=== PATIENT | female | born 1930 | race Caucasian/White ===

== ENCOUNTER 2017-03-31 07:58 | Inpatient (IN) | payer OTHER ==
[~2017-03-31] VITALS: Ht 160 cm; Wt 72.6 kg
--- NOTE | ~2017-03-31 | O ---
[facility] [place] [address] OPERATIVE REPORT Name: JENNIE CAM Room #: 404-P [facility] IN M.R.#: [id number] Admission: 03/31/17 Attend Phys: Ramirez Ivan Discharge: 04/04/17 Date of : 31 Report #: [id number] THIS REPORT FOR: //name// CC: Ramirez Garcia DATE OF SERVICE: 04/01/2017 PREOPERATIVE DIAGNOSIS: Left comminuted transverse patellar fracture. POSTOPERATIVE DIAGNOSIS: Left comminuted transverse patellar fracture. PROCEDURE: Left inferior patellar pole patellectomy with primary patellar tendon repair. SURGEON: Robert Coker MD CABLE ENGINEER OUTSIDE PLANT: Mirna Marquez PA-C INDICATION FOR CABLE ENGINEER OUTSIDE PLANT: Throughout the case, extensive retraction and manipulation of the knee was required. This was afforded to me by my sales and marketing assistant. ANESTHESIA: LMA. TOURNIQUET TIME: 35 minutes. COMPLICATIONS: None. SPECIMENS: None. CONDITION UPON LEAVING THE OR: Stable. INDICATIONS FOR PROCEDURE: The patient is an 86-year-old female who fell and sustained a left transverse comminuted patellar fracture. This was significantly displaced. She sustained a very similar fracture on her right knee about 2 years ago that was treated with inferior pole patellectomy and primary repair and she did very well with this. After discussion with she and her family, they elected for ORIF versus inferior patellectomy with primary repair. DESCRIPTION OF PROCEDURE: Risks, benefits, alternatives, complications were discussed in detail with the patient including but not limited to risk of anesthesia, risk of damage to nerves, arteries, blood vessels, risk for infection, bleeding, risk for continued knee pain, need for reoperation, re-rupture and further complications. Informed consent was obtained from the patient. Left knee was appropriately marked in the preoperative holding area. [address] [address] OPERATIVE REPORT Name: DORINAJENNIEGeovanni DIAZ Room #: 404-P [facility] IN M.R.#: [id number] Admission: 03/31/17 Attend Phys: Ramirez Ivan Discharge: 04/04/17 Date of : 31 Report #: [id number] Ancef was given for preoperative antibiotics. She was brought to the operating room and placed in supine position on operating room table. LMA anesthesia was induced without complication. Tourniquet was placed on left thigh. Left lower extremity was prepped and draped in normal sterile fashion. Timeout was performed properly identifying the patient and procedure as well as instrumentation. All in the operating room were in agreement. Left lower extremity was exsanguinated, tourniquet was inflated. Tourniquet time was approximately 35 minutes. Standard midline approach to the knee was made with 10 blade through the skin and dissection was taken down to the quadriceps fascia and upon entering the deep space, a large hematoma was evacuated. Deep flaps were developed medially and laterally. The superior fracture fragment was one large solid piece. The inferior fracture fragment was highly comminuted and crushed and it was felt that this was not repairable. The inferior patellar pole was then removed sharply with a 15 blade. Two #5 FiberWires were then passed through the patellar tendon using a Mcdonald type suture technique. was then used to drill 3 holes in the patella from inferior to superior and the sutures were delivered through the drill holes. The knee was then held in extension and the patellar tendon was held reduced to the patella and the #5 FiberWires were tied. There was excellent repair of the tendon to the bone with minimal tension of 45 degrees in flexion. The torn retinaculum was then repaired with 0 Vicryl. The tendon was oversewn to the patella using 0 Vicryl, skin was closed with 2-0 Vicryl, 3-0 Monocryl and Dermabond and soft dressing was applied with a hinged knee brace locked in extension. The patient tolerated the procedure well and went to the recovery room under the care of anesthesia postoperatively. <ELECTRONICALLY SIGNED> By: Robert Coker MD 04/23/17 0820 1536 1718 Robert Coker MD /nt
--- NOTE | ~2017-03-31 | HC ---
[facility] [place] [address] CONSULTATION Name: JENNIE CAM Room #: 404-P ADM IN M.R.#: [id number] Admission: 03/31/17 Attend Phys: Ramirez Ivan Discharge: Date of : 31 Report #: [id number] THIS REPORT FOR: //name// CC: Ramirez Garcia CHIEF COMPLAINT: Left patella fracture. HISTORY OF PRESENT ILLNESS: This still active, alert and independent 86-year-old female fell injuring the left knee. This resulted in a transverse comminuted displaced patellar fracture. She sustained no other injuries. She had a similar injury in the opposite right knee, which required surgical repair about 3 years ago. She has done well on that side. She notes her only other general medical issues are mild hypertension and mild paroxysmal tachycardia, which seems to be well controlled. She notes she is active and fully functional at home with her and cares for her own home and is able to walk for exercise. PHYSICAL EXAMINATION: At the time of my evaluation, she is in the Emergency Room with her and daughter. She is fully alert and comfortable and seems younger than her stated age. She notes no other areas of injury and has no other complaints aside from the left knee. She seems to have good movement of the neck, back and both upper extremities without any localized discomfort. The pelvis appears stable and she demonstrates satisfactory movement of both hips without hip pain. The right lower extremity reveals good movement at the right knee and her old surgical scar consistent with previous patella injury with repair. The left knee is puffy and uncomfortable and there is a palpable defect consistent with a displaced and unstable patella fracture. The left lower leg, foot and ankle appear to be normal. X-rays of the left knee reveal a transverse comminuted fracture of the patella with a smaller comminuted distal fragment and a larger more intact proximal fragment. There is a wide separation. The rest of the bony architecture about the distal femur and proximal tibia appear to be normal. IMPRESSION: Fracture, left patella. PLAN: I have discussed with the patient and her family the nature of the injury. They understand well as she has had a similar problem in the opposite side. I think surgical repair is the best option. We will admit her today and make sure there are no other medical problems which require attention. At this point, however, she seems healthy and I would anticipate we could probably proceed with surgical repair whenever OR time is available. The opposite side was repaired by Dr. Coker and they may wish to have [place] [address] CONSULTATION Name: JENNIE CAM Room #: 404-P [facility] IN M.R.#: [id number] Admission: 03/31/17 Attend Phys: Ramirez Ivan Discharge: Date of : 31 Report #: [id number] as well. Pending this and other scheduling issues, we will try to proceed tomorrow with surgical repair of the left patella fracture. <ELECTRONICALLY SIGNED> By: Jean-Claude Cam MD 04/02/17 0718 1116 [id number] Jean-Claude Cam MD /nt
--- NOTE | ~2017-03-31 | EKG ---
[place] [address] [facility] [place] [address] ELECTROCARDIOGRAM REPORT Name: JENNIE CAM Room #: 170-4 ADM IN M.R.#: [id number] Admission: 03/31/17 Attend Phys: Ramirez Ivan Discharge: Date of : 31 Report #: [id number] THIS REPORT FOR: //name// [facility] ED Test Date: 2017-03-31 Test Time: 09:54:50 Pat Name: JENNIE CAM Department: Room: 170 Gender: F Pumper Gauger Apprentice: Constantine MAYFIELD : 1930 Requested By: Lian Cabrales Order Number: [id number] MD: Bhavin Brice Measurements Intervals [place] Rate: 64 P: 52 WI: 204 QRS: 21 QRSD: 86 T: 49 QT: 419 QTc: 433 Interpretive Statements Sinus rhythm Minimal ST depression, lateral leads Compared to ECG 01/17/2015 16:10:49 ST (T wave) deviation now present Electronically Signed On 03-31-2017 12:16:31 SPOILAGE WORKER by Bhavin Brice [email or web address] <ELECTRONICALLY SIGNED> By: Bhavin Brice MD 03/31/17 1216 0954 0954 Bhavin Brice MD /ISHMAEL
[~2017-03-31 07:58] MED LIST: COLACE100 MG PO; ENOXAPARIN40 MG/0.1 SUBQ; FERROUS SULFAT325 M1 PO; LISINOPRIL10 MG PO; NORCO 5-325 TA1 EACH PO; NORVASC5 MG PO; PAXIL10 MG; PRINIVIL20 M1 PO; PROTONIX40 M1 PO; SENNA PO; TENORMIN25 MG PO; TENORMIN50 MG PO; TYLENOL325 MG PO; VITAMINC500 PO
[2017-03-31 07:59] VITALS: BP 79/67
[2017-03-31 10:14] LABS: ABSOLUTE NEUTROPHILS 8.8 thou/uL (1.4-8.2); BASOPHILS 0.4 % (0.0-2.0); EOSINOPHILS 0.6 % (0.0-3.0); HEMATOCRIT 32.6 % (37.0-47.0); HEMOGLOBIN 11.1 gm/dL (12.0-15.0); LYMPHOCYTES 7.1 % (24.0-44.0); MCH 29.1 pg (26.0-34.0); MCHC 33.9 g/dL (28.0-37.0); MCV 85.8 fL (80.0-100.0); MONOCYTES 4.5 % (1.0-8.0); PLATELET COUNT 310 thou/uL (150-400); POLYS 87.4 % (36.0-66.0); RDW 14.1 % (10.5-14.5); WBC 10.1 thou/uL (4.0-11.0)
[2017-03-31 10:23] LABS: CALCIUM 9.1 mg/dL (8.5-10.1); CREATININE 1.2 mg/dL (0.6-1.0); POTASSIUM 4.3 mmol/L (3.5-5.1)
[2017-03-31 10:38] LABS: APTT 27.8 Seconds (24.5-32.8); PROTIME 10.2 Seconds (9.3-11.4)
[2017-03-31 17:21] VITALS: BP 159/73
[2017-03-31 17:53] VITALS: BP 152/78
[2017-03-31 20:00] VITALS: BP 168/65
[2017-04-01] MEDS ORDERED: PRAVACHOL20 MG PO (02:54)
[2017-04-01] MEDS ORDERED: ASPIR 8181 MG PO (02:55)
[2017-04-01] MEDS ORDERED: VITAMIN D1000 UNI1 PO (02:56)
[2017-04-01 04:00] VITALS: BP 142/49
[2017-04-01 04:39] LABS: ALBUMIN 2.8 g/dL (3.4-5.0); CALCIUM 8.4 mg/dL (8.5-10.1); CREATININE 1.2 mg/dL (0.6-1.0); PHOSPHORUS 3.4 mg/dL (2.5-4.9); POTASSIUM 4.1 mmol/L (3.5-5.1)
[2017-04-01 08:00] VITALS: BP 162/63
[2017-04-01 14:41] VITALS: BP 172/75
[2017-04-01 16:00] VITALS: BP 162/63
[2017-04-01 20:14] VITALS: BP 142/57
[2017-04-02 01:14] VITALS: BP 134/53
[2017-04-02 04:05] VITALS: BP 146/65
[2017-04-02 06:41] LABS: HEMATOCRIT 26.9 % (37.0-47.0); HEMOGLOBIN 9.3 gm/dL (12.0-15.0); MCH 29.7 pg (26.0-34.0); MCHC 34.6 g/dL (28.0-37.0); MCV 85.9 fL (80.0-100.0); RBC 3.14 mil/uL (4.20-5.00); RDW 13.9 % (10.5-14.5); WBC 9.8 thou/uL (4.0-11.0)
[2017-04-02 06:53] LABS: CALCIUM 8.4 mg/dL (8.5-10.1); CREATININE 1.2 mg/dL (0.6-1.0); POTASSIUM 4.4 mmol/L (3.5-5.1)
[2017-04-02 07:45] VITALS: BP 141/60
[2017-04-02 16:02] VITALS: BP 147/57
[2017-04-02 20:00] VITALS: BP 154/60
[2017-04-03 04:00] VITALS: BP 138/48
[2017-04-03 07:39] VITALS: BP 159/64
[2017-04-03] MEDS ORDERED: CYCLOBENZAPRINE5 MG PO (12:02)
[2017-04-03] MEDS ORDERED: NORCO 5-325 TA1 EACH PO (12:03)
[2017-04-03 15:28] VITALS: BP 146/58
[2017-04-03 20:00] VITALS: BP 151/49
[2017-04-04 04:00] VITALS: BP 114/62
[2017-04-04 09:21] VITALS: BP 152/70
== END 2017-04-04 10:20 | DRG 488 ==
LOC: ER 07:58 → EROBS 09:10 → 4N 09:10
PROVIDERS: Emergency Medicine; Hospitalist
DX: S82.042A Displaced comminuted fracture of left patella, initial encounter for closed fracture (principal); E43 Unspecified severe protein-calorie malnutrition; I10 Essential (primary) hypertension; M81.0 Age-related osteoporosis without current pathological fracture; Z90.49 Acquired absence of other specified parts of digestive tract; Z79.899 Other long term (current) drug therapy; S70.02XA Contusion of left hip, initial encounter; W01.0XXA Fall on same level from slipping, tripping and stumbling without subsequent striking against object, initial encounter; Y93.89 Activity, other specified; Y92.89 Other specified places as the place of occurrence of the external cause; Y99.8 Other external cause status
CPT/HCPCS: 10790; 50010; 50101; 50386; 51331; 51412; 53337; 54118; 56521; 56527; 56528; 56531; 57091; 62110; 62900; 64037; 64041; 64043; 70005

== ENCOUNTER → 2019-07-29 | Outpatient (CLI) | payer OTHER ==
[~2019-07-29] MED LIST changes: +ASPIR 8181 MG PO; +CYCLOBENZAPRINE5 MG PO; +PRAVACHOL20 MG PO; +VITAMIN D1000 UNI1 PO
== END ==
LOC: SJCVC 13:20
DX: I25.111 Atherosclerotic heart disease of native coronary artery with angina pectoris with documented spasm (principal); I10 Essential (primary) hypertension; E78.00 Pure hypercholesterolemia, unspecified; I65.23 Occlusion and stenosis of bilateral carotid arteries; R93.1 Abnormal findings on diagnostic imaging of heart and coronary circulation; R00.2 Palpitations; R42 Dizziness and giddiness; Z82.49 Family history of ischemic heart disease and other diseases of the circulatory system; Z79.82 Long term (current) use of aspirin; Z79.899 Other long term (current) drug therapy

== ENCOUNTER 2020-12-30 09:18 | Emergency (ER) | payer OTHER ==
[~2020-12-30] VITALS: Ht 160 cm; Wt 70.3 kg
[2020-12-30] MEDS ORDERED: ATORVASTATIN CA10 MG PO (09:24)
[2020-12-30] MEDS ORDERED: NORTRIPTYLINE H10 M1 PO (09:24)
[2020-12-30] MEDS ORDERED: ATENOLOL 25 MG25 M1 PO (09:25)
[2020-12-30] MEDS ORDERED: COZAAR 25 MG TA25 M1 PO (09:26)
[2020-12-30 09:42] LABS: ABSOLUTE NEUTROPHILS 6.2 thou/uL (1.4-8.2); BASOPHILS 0.5 % (0.0-2.0); EOSINOPHILS 1.6 % (0.0-3.0); HEMATOCRIT 32.9 % (37.0-47.0); HEMOGLOBIN 10.8 gm/dL (12.0-15.0); LYMPHOCYTES 14.7 % (24.0-44.0); MCH 28.2 pg (26.0-34.0); MCHC 32.7 g/dL (28.0-37.0); MCV 86.4 fL (80.0-100.0); MONOCYTES 6.3 % (1.0-8.0); PLATELET COUNT 326 thou/uL (150-400); POLYS 76.9 % (36.0-66.0); RBC 3.81 mil/uL (4.20-5.00); WBC 8.1 thou/uL (4.0-11.0)
[2020-12-30 09:51] LABS: CALCIUM 8.9 mg/dL (8.5-10.1); CREATININE 1.5 mg/dL (0.6-1.0); POTASSIUM 4.2 mmol/L (3.5-5.1)
--- NOTE | 2020-12-30 09:56 | EKG ---
[address] [address] ELECTROCARDIOGRAM REPORT Name: JENNIE CAM Room #: [facility].R.#: [id number] Admission: Attend Phys: Discharge: Date of : 31 Report #: [id number] ED Test Date: 2020-12-30 Test Time: 09:23:27 Pat Name: JENNIE CAM Department: Room: Gender: F Research Interviewer: : 1930 Requested By: Jean-Claude Sin Order Number: [id number] MD: Billy Bourgeois Measurements Intervals [place] Rate: 69 P: 42 GA: 189 QRS: 8 QRSD: 99 T: 32 QT: 415 QTc: 445 Interpretive Statements Sinus rhythm Probable left ventricular hypertrophy Compared to ECG 03/31/2017 09:54:50 Left ventricular hypertrophy now present Electronically Signed On 12-30-2020 9:56:05 CDT by Billy Bourgeois [email or web address] <ELECTRONICALLY SIGNED> By: Billy Bourgeois MD, [facility] 12/30/2056 2 2 Billy Bourgeois MD, FACC /EPI
[2020-12-30 10:00] LABS: ALBUMIN 2.9 g/dL (3.4-5.0); TOTAL BILIRUBIN 0.3 mg/dL (0.2-1.0); TOTAL PROTEIN 7.2 g/dL (6.4-8.2)
[2020-12-30 10:27] LABS: URINE BILIRUBIN NEGATIVE (Negative); URINE BLOOD NEGATIVE (Negative); URINE CLARITY CLEAR; URINE COLOR YELLOW; URINE GLUCOSE-RANDOM* NEGATIVE (Negative); URINE KETONES NEGATIVE (Negative); URINE LEUKOCYTES-REFLEX NEGATIVE (Negative); URINE NITRITE-REFLEX NEGATIVE (Negative); URINE PROTEIN (DIPSTICK) 2+ (Negative); URINE SPECIFIC GRAVITY 1.015 (1.005-1.035); URINE UROBILINOGEN 0.2 E.U./dl (0.2-1.0)
[2020-12-30 11:36] LABS: BACTERIA-REFLEX 1-9 Few /HPF (None Seen); CASTS None Seen /LPF (None Seen); CRYSTALS None Seen /LPF (None Seen); SQUAMOUS 0-3 Few /LPF (0-3); URINE RBC None Seen /HPF (NONE SEEN); URINE WBC-REFLEX 0-5 Rare /HPF (0-5)
[2020-12-30] MEDS ORDERED: MECLIZINE HCL25 MG PO (11:46)
[2020-12-30 11:58] VITALS: BP 186/66
== END 2020-12-30 11:58 | disposition home or self-care (01) ==
LOC: ER 09:18
PROVIDERS: Emergency Medicine
DX: R42 Dizziness and giddiness (principal); I12.9 Hypertensive chronic kidney disease with stage 1 through stage 4 chronic kidney disease, or unspecified chronic kidney disease; N18.9 Chronic kidney disease, unspecified; Z90.49 Acquired absence of other specified parts of digestive tract; Z90.89 Acquired absence of other organs; Z98.890 Other specified postprocedural states; Z79.82 Long term (current) use of aspirin; Z79.891 Long term (current) use of opiate analgesic; Z79.899 Other long term (current) drug therapy

== ENCOUNTER 2021-02-05 15:37 | Emergency (ER) | payer OTHER ==
[~2021-02-05] VITALS: Ht 160 cm; Wt 72.6 kg
--- NOTE | ~2021-02-05 | EMS ---
[address] [address] EMS Patient Care Report Name: JENNIE CAM Room #: DEP PREMA [place]#: [id number] Admission: 02/05/21 Attend Phys: Discharge: 02/05/21 Date of : 31 Report #: [id number] THIS REPORT FOR: //name// Report Transmitted: 02/06/2021 15:14 EMS Care Summary [place], [place]/[facility] Incident [id number] @ 02/05/2021 14:46 Incident Location [address] [place] [address] Patient JENNIE CAM Female, 89 Years 1930 Patient Address [address] [place] [address] Patient History Hypertension (HTN), Patient Allergies No known allergies, Patient Medications Potassium, Atorvastatin, Atenolol, Amlodipine, Losartan, Chief Complaint headache Disposition Transported No Lights/Jones Dispatch Reason Sick Person Transported To [facility] Narrative Dispatched to an assisted living facility in regards to a sick. On arrival, I saw patient sitting in the lounge in her armchair. Initial assessment revealed that patient was A&Ox4 and did not appear to be in respiratory distress. Patient's chief complaint was a headache that started earlier today. [place] [id number] EMS Patient Care Report Name: JENNIE CAM Room #: DEP PREMA FerrariSrinivas#: [id number] Admission: 02/05/21 Attend Phys: Discharge: 02/05/21 Date of : 31 Report #: [id number] stated that patient began having a headache and they checked her blood pressure and saw that her blood pressure was high. Family also state that patient sometimes has a hard time controlling her blood pressure even with her medicine. Physical assessment revealed that patient was pink warm and dry. Patient was able to ambulate to our cot unassisted. Patient was secured and lifted into the ambulance. treatment rendered was obtaining a complete set of baseline vital signs including a blood glucose reading, 3 lead ECG monitoring and establishing vascular access with a saline lock. Patient was transported to [facility] and radio report was given en route. Patient care was transferred on arrival. Initial Vitals @15:19P: 71,R: 16,BP: 224/96,Pain: 4/10,GCS: 15,SpO2: 98,Revised Trauma: 12, @15:09P: 75,R: 16,BP: 224/91,Pain: 4/10,GCS: 15,Glucose: 130,CO: 0,SpO2: 100,Revised Trauma: 12, Assessments @15:23MENTAL:Time Oriented,Place Oriented,Person Oriented,Event Oriented,SKIN:HEENT:LUNG SOUNDS:ABDOMEN:PELVIS//GI:EXTREMITIES:PULSE:NEURO:No Abnormalities, Impression Headache Procedures @15:22 ALS Assessment Response: UnchangedSucceeded @15:23 IV Therapy - Saline Lock 10cc (22 ga) Site: Forearm-Left Response: UnchangedSucceeded @15:25 3-Lead ECG Response: UnchangedSucceeded Timeline 14:44,Call Received 14:44,Dispatch Notified 14:46,Dispatched 14:47,En Route 14:55,On Scene 15:00,At Patient 15:09,BP: 224/91 M,PULSE: 75,RR: 16 R,SPO2: 100 Ox,ETCO2: ,B,PAIN: 4,GCS: 15, 15:19,BP: 224/96 M,PULSE: 71,RR: 16 R,SPO2: 98 Ox,ETCO2: ,BG: ,PAIN: 4,GCS: 15, 15:20,Depart Scene 15:22,ALS Assessment,Response: UnchangedSucceeded, 15:23,IV Therapy - Saline Lock 10cc 22 ga Site: Forearm-Left,Response: UnchangedSucceeded, 15:25,3-Lead ECG,Response: UnchangedSucceeded, [facility] [address] [place] [address] EMS Patient Care Report Name: JENNIE CAM Room #: DEP PREMA [place]#: [id number] Admission: 02/05/21 Attend Phys: Discharge: 02/05/21 Date of : 31 Report #: [id number] 15:32,At Destination 15:44,Call Closed Disclaimer v1.1 Copyright 2020 [employer] This EMS Care Summary contains data elements from the applicable legal record (which may be displayed differently). It is designed to provide pertinent information for the following purposes: continuity of care, clinical quality, and state data reporting. The complete legal record is available to ED staff and administrators of the receiving hospital in [facility]'s Patient Tracker. All data is provided "as is."
[~2021-02-05 15:37] MED LIST changes: +ATENOLOL 25 MG25 M1 PO; +ATORVASTATIN CA10 MG PO; +COZAAR 25 MG TA25 M1 PO; +MECLIZINE HCL25 MG PO; +NORTRIPTYLINE H10 M1 PO
[2021-02-05 17:26] LABS: ABSOLUTE NEUTROPHILS 5.9 thou/uL (1.4-8.2); BASOPHILS 0.7 % (0.0-2.0); EOSINOPHILS 1.4 % (0.0-3.0); HEMATOCRIT 33.2 % (37.0-47.0); HEMOGLOBIN 10.9 gm/dL (12.0-15.0); LYMPHOCYTES 24.9 % (24.0-44.0); MCH 28.6 pg (26.0-34.0); MCHC 32.9 g/dL (28.0-37.0); MONOCYTES 8.1 % (1.0-8.0); PLATELET COUNT 364 thou/uL (150-400); POLYS 64.9 % (36.0-66.0); RBC 3.82 mil/uL (4.20-5.00); RDW 14.4 % (10.5-14.5); WBC 9.1 thou/uL (4.0-11.0)
[2021-02-05 17:32] LABS: CREATININE 1.3 mg/dL (0.6-1.0)
[2021-02-05 17:47] LABS: POTASSIUM 5.3 mmol/L (3.5-5.1)
[2021-02-05 19:12] LABS: URINE BILIRUBIN NEGATIVE (Negative); URINE BLOOD NEGATIVE (Negative); URINE CLARITY CLEAR; URINE COLOR YELLOW; URINE GLUCOSE-RANDOM* NEGATIVE (Negative); URINE KETONES NEGATIVE (Negative); URINE LEUKOCYTES-REFLEX NEGATIVE (Negative); URINE NITRITE-REFLEX NEGATIVE (Negative); URINE PROTEIN (DIPSTICK) 2+ (Negative); URINE UROBILINOGEN 0.2 E.U./dl (0.2-1.0)
[2021-02-05 19:47] VITALS: BP 164/64
[2021-02-05 19:55] LABS: CALCIUM 8.7 mg/dL (8.5-10.1); CREATININE 1.3 mg/dL (0.6-1.0)
[2021-02-05 20:03] LABS: POTASSIUM 4.3 mmol/L (3.5-5.1)
[2021-02-05 20:10] LABS: SQUAMOUS 0-3 Few /LPF (0-3)
[2021-02-05 20:11] LABS: BACTERIA-REFLEX None Seen /HPF (None Seen); CASTS None Seen /LPF (None Seen); CRYSTALS None Seen /LPF (None Seen); URINE RBC 1-2 Rare /HPF (NONE SEEN); URINE WBC-REFLEX 0-5 Rare /HPF (0-5)
--- NOTE | 2021-02-06 07:27 | EKG ---
[place] [address] [address] [email or web address] [address] ELECTROCARDIOGRAM REPORT Name: JENNIE CAM [id number] Admission: 02/05/21 Attend Phys: Discharge: 02/05/21 Date of : 31 Report #: [id number] [facility] ED Test Date: 2021-02-05 Test Time: 16:26:19 Pat Name: JENNIE CAM Department: Room: Gender: F Clinical Research Specialist: carmine : 1930 Requested By: Chadd Borges Order Number: [id number] MD: Billy Bourgeois Measurements Intervals [place] Rate: 74 P: 49 [place]: 180 QRS: 24 QRSD: 99 T: 33 QT: 422 QTc: 469 Interpretive Statements Sinus rhythm Probable left ventricular hypertrophy Compared to ECG 12/30/2020 09:23:27 No significant changes Electronically Signed On 02-06-2021 7:26:38 FLUE TILE PRESS OPERATOR by Billy Bourgeois [email or web address] <ELECTRONICALLY SIGNED> By: Billy Bourgeois MD, [facility] 02/06/21 0726 1626 1626 Billy Bourgeois MD, FACC /EPI
== END 2021-02-05 21:41 | disposition home or self-care (01) ==
LOC: ER 15:37
PROVIDERS: Nurse Practitioner
DX: R51.9 Headache, unspecified (principal); I16.0 Hypertensive urgency; E87.1 Hypo-osmolality and hyponatremia; I12.9 Hypertensive chronic kidney disease with stage 1 through stage 4 chronic kidney disease, or unspecified chronic kidney disease; N18.9 Chronic kidney disease, unspecified; Z90.89 Acquired absence of other organs; Z90.49 Acquired absence of other specified parts of digestive tract; Z98.890 Other specified postprocedural states; Z79.82 Long term (current) use of aspirin; Z79.891 Long term (current) use of opiate analgesic; Z79.899 Other long term (current) drug therapy